=== PATIENT | female | born 2000 | race Two or more races ===

== ENCOUNTER 2024-03-09 15:36 | Observation (INO) | payer MEDICAID, SELFPAY ==
[2024-03-09] VITALS (87 sets, daily range): BP systolic 112–123; BP diastolic 69–90; PULSE 116–140; RESP 16–22; TEMP 37.5–39.1; O2SAT 91–100; BMI 33.8
--- NOTE | 2024-03-09 15:45 | XR_ITS ---
Examination: Complete OB ultrasound greater than 14 weeks Date and time of exam: March 09, 2024 1631 hrs. Indications: Lower back pelvic pain and fever onset today Findings: Viable intrauterine single fetus with single amniotic sac presentation cephalic spine maternal left Cardiac motion 167 BPM Placenta anterior grade 2 Umbilical cord insertion seen Cervix 4.5 cm Ovaries obscured by bowel gas. Composite estimated gestational age based on BPD, head circumference, abdominal circumference, femur length is 38 weeks 2 days Estimated weight 3551 g. Survey of intracranial anatomy, spinal anatomy, abdominal anatomy, four-chamber heart performed with no abnormalities identified. Impression: Viable intrauterine gestation cephalic presentation Estimated gestational age 38 weeks 2 days.
[2024-03-09] MEDS: ACETAMINOPHEN 325 MG TABLET 650 MG PO (16:04)
[2024-03-09 16:23] LABS: Collection Type, Urine Clean Catch; RBC,Urine 0 /hpf (0-3)
[2024-03-09 16:24] LABS: Lactate (Lactic Acid) 2.2 mMol/L (0.4-2.0)
[2024-03-09 16:26] LABS: Basophils % (Auto) 0 % (0-2.5); Eosinophils % (Auto) 0 % (0-10); Hematocrit 28.7 % (36.0-46.0); Hemoglobin 9.1 g/dL (12.0-16.0); Immature Granulocytes % (Auto) 1 % (0-0); Immature Granulocytes Auto 0.09 Thou/mm3 (0.00-0.00); Lymphocytes # (Auto) 0.3 Thou/mm3 (1.0-4.8); Lymphocytes % (Auto) 4 % (10-50); Mean Corpuscular HGB Conc 31.7 g/dl (31.0-37.0); Mean Corpuscular Hemoglobin 24.3 pg (25.0-35.0); Mean Corpuscular Volume 77 fL (80-100); Monocytes # (Auto) 0.6 Thou/mm3 (0.0-0.8); Monocytes % (Auto) 9 % (0-12); Neutrophils % (Auto) 85 % (37-80); Nucleated Red Blood Cell # 0.08 Thou/mm3 (0.00-0.00); Nucleated Red Blood Cell % 1 /100 WBC (0); Platelet Count 169 Thou/mm3 (140-440); RDW Standard Deviation 45.6 fL (36.4-46.3); Red Blood Count 3.75 Miln/mm3 (4.00-5.20); White Blood Count 7.1 Thou/mm3 (3.6-11.0)
[2024-03-09 16:40] LABS: Bilirubin,Urine Negative (Negative); Blood,Urine Negative (Negative); Clarity,Urine Clear (Clear/Hazy); Color,Urine Lt-Yellow (Lt Yel-Yel); Glucose, Urine Negative (Negative); Ketones,Urine Trace (Negative); Leukocyte Esterase,Urine Negative (Negative); Nitrite,Urine Negative (Negative); Protein,Urine Negative (Neg - Trace); Specific Gravity,Urine 1.007 (1.001-1.035); Squamous Epithelial Cell,Urine 3 /hpf (0-5); Urobilinogen,Urine Negative mg/dL (0.0-1.0); WBC,Urine < 1 /hpf (0-5)
[2024-03-09] MEDS: SODIUM CHLORIDE 0.9% 1000 ML 1,000 ML 999 ML IV ×2 (16:45→20:41)
[2024-03-09 16:46] LABS: Influenza A Ag Negative; Influenza B Ag Negative
[2024-03-09 16:46] LABS: COVID-19 Antigen (In-House) Negative (Negative)
[2024-03-09] MEDS: ceFAZolin/D5W 2 GM IV 2 GM/100 ML BAG IV ×2 (16:47→22:38)
[2024-03-09 19:20] LABS: Reflex Lactate? Y
[2024-03-09 19:42] LABS: Lactic Acid, 3 HR 1.1 mMol/L (0.4-2.0)
[2024-03-09] MEDS: ACETAMINOPHEN IVPB 1,000 MG/100 ML VIAL 250 MG IV (20:50)
[2024-03-09] MEDS: SODIUM CHLORIDE 0.9% 1000 ML 1,000 ML 125 ML IV (22:41)
[2024-03-10] VITALS (116 sets, daily range): BP systolic 115–131; BP diastolic 67–85; PULSE 95–215; RESP 18–22; TEMP 36.8–38.1; O2SAT 93–100
[2024-03-10] MEDS: ACETAMINOPHEN 325 MG TABLET PO ×2 (02:24→04:48)
--- NOTE | 2024-03-10 05:33 | PD.LDANTE ---
Documentation for date of: 03/10/24 OB Labor/Induct. HPI History of Present Illness : 1 History of present illness: 23 at 36 weeks and 4 days, TING 04/02/2024 presented to labor and delivery triage with complaints of high fevers, respiratory symptoms as well as palpitations for 1 day duration. Patient denies any obstetric complaints. Specifically she reports no contractions or leakage of fluid and reports good movements. Patient does endorse that she was at family function where there was a gathering and there are other members who are also sick with similar symptoms. History of Present Adequate Care: Yes Review of Systems Review of Systems Systems Reviewed: All systems reviewed, normal except as documented Meds Home Medications and Allergies Home Medications ?Medication ?Instructions ?Recorded ?Confirmed ?Type [id number]-[id number]-FA 1 mg 1 tab PO DAILY 01/22/24 01/22/24 History tablet Allergies Allergy/AdvReac Type Severity Reaction Status Date / Time No Known Allergies Allergy Unverified 01/23/24 08:31 OB Exam Physical Exam Vital signs: Temp Pulse Resp BP Pulse Ox O2 Del Method 100.6 F H 126 H 18 115/67 100 Room Air 03/10/24 04:48 03/10/24 04:35 03/10/24 04:35 03/10/24 04:35 03/10/24 04:35 03/10/24 04:35 Constitutional Constitutional: no acute distress Routine HEENT Exam Head: Present normocephalic and atraumatic Eye: Present EOMI and PERRL ENT: Present mucous membranes moist Routine Neck Exam Neck: Present supple and trachea midline Routine Cardiovascular Exam Cardiovascular: Present RRR Routine Abdominal Exam Abdominal: Present soft and normoactive bowel sounds Routine Extremities Exam Extremities: Present full ROM Routine Skin Exam Skin: Present intact, dry and warm Routine Neurological Exam Neurological: Present alert, oriented X3 and CN II-XII intact Routine Psychiatric Exam Psychiatric: Present normal affect and normal thought process OB Results Labs 03/09/24 16:11 Labs: Short CBC 03/09/24 Range/Units 16:11 WBC 7.1 (3.6-11.0) Thou/mm3 Hgb 9.1 L (12.0-16.0) g/dL Hct 28.7 L (36.0-46.0) % Plt Count 169 (140-440) Thou/mm3 Urine 12/01/24 Range/Units 16:05 Urine Color Lt-Yellow (Lt Yel-Yel) Urine Clarity Clear (Clear/Hazy) Urine pH 7.0 (5.0-7.0) Ur Specific [place] 1.007 (1.001-1.035) Urine Protein Negative (Neg - Trace) Urine Glucose (UA) Negative (Negative) OB Assessment & Plan Assessment and Plan (1) Fever of unknown origin: Status: Acute Assessment and plan: 23-year-old G1, P0 at 36 weeks and 5 days with fever of unknown origin Place in observation status Start antibiotics for empiric coverage for UTI Intermittent monitoring Reassess in the morning and discharge as necessary
[2024-03-10] MEDS: ceFAZolin/D5W 2 GM IV 2 GM/100 ML BAG IV (05:51)
[2024-03-10] MEDS: SODIUM CHLORIDE 0.9% 1000 ML 1,000 ML 250 ML IV (08:14)
[2024-03-10] MEDS: ACETAMINOPHEN IVPB 1,000 MG/100 ML VIAL 250 MG IV ×3 (10:00→21:53)
[2024-03-10] MEDS: PIPER/TAZO INJ 3.375 GM in SODIUM CHLORIDE 0.9% 100 ML IV ×3 (10:48→23:57)
[2024-03-10 11:27] LABS: COVID-19 Antigen (In-House) Negative (Negative)
[2024-03-11 04:00] VITALS: TEMP 37.7
[2024-03-11] MEDS: SODIUM CHLORIDE 0.9% 1000 ML 1,000 ML 250 ML IV (05:22)
[2024-03-11 05:32] VITALS: BP 124/80; PULSE 93; TEMP 38.1
[2024-03-11] MEDS: ACETAMINOPHEN IVPB 1,000 MG/100 ML VIAL 250 MG IV (06:10)
[2024-03-11 06:28] VITALS: TEMP 37.7
[2024-03-11 07:55] LABS: Lactate (Lactic Acid) 0.8 mMol/L (0.4-2.0)
[2024-03-11 07:58] LABS: Basophils % (Auto) 0 % (0-2.5); Eosinophils % (Auto) 0 % (0-10); Hematocrit 25.6 % (36.0-46.0); Immature Granulocytes % (Auto) 1 % (0-0); Immature Granulocytes Auto 0.07 Thou/mm3 (0.00-0.00); Lymphocytes # (Auto) 0.8 Thou/mm3 (1.0-4.8); Lymphocytes % (Auto) 14 % (10-50); Mean Corpuscular HGB Conc 30.5 g/dl (31.0-37.0); Mean Corpuscular Hemoglobin 23.6 pg (25.0-35.0); Mean Corpuscular Volume 77 fL (80-100); Monocytes # (Auto) 0.4 Thou/mm3 (0.0-0.8); Monocytes % (Auto) 8 % (0-12); Neutrophils # (Auto) 4.1 Thou/mm3 (1.8-7.7); Neutrophils % (Auto) 76 % (37-80); Nucleated Red Blood Cell # 0.04 Thou/mm3 (0.00-0.00); Nucleated Red Blood Cell % 1 /100 WBC (0); Platelet Count 173 Thou/mm3 (140-440); RDW Standard Deviation 47.1 fL (36.4-46.3); Red Blood Count 3.31 Miln/mm3 (4.00-5.20); White Blood Count 5.3 Thou/mm3 (3.6-11.0)
[2024-03-11 08:07] VITALS: BP 129/85; PULSE 95; RESP 18; TEMP 37.1; O2SAT 100
[2024-03-11 08:10] LABS: Hemoglobin 7.8 g/dL (12.0-16.0)
[2024-03-11 08:25] LABS: Alanine Aminotransferase 14 U/L (10-49); Albumin, Serum 3.3 gm/dL (3.5-5.0); Albumin/Globulin Ratio 1.7 (1.2-2.2); Alkaline Phosphatase 219 U/L (46-116); Anion Gap 11 (7-16); Aspartate Amino Transferase 27 U/L (0-34); BUN/Creatinine Ratio 13 Ratio (12-20); Bilirubin,Total 0.9 mg/dL (0.3-1.2); Blood Urea Nitrogen < 5 mg/dL (9-23); Calcium (Corrected) 8.6 mg/dL (8.5-10.1); Carbon Dioxide 16.3 mMol/L (20.0-31.0); Chloride 110 mMol/L (98-107); Creatinine (Component) 0.4 mg/dL (0.6-1.3); Estimated Creatinine Clearance 211.2 mL/min (>60); Glucose 81 mg/dL (74-106); Osmolality,Calculated 270 (275-295); Potassium 3.1 mMol/L (3.4-5.1); Sodium 137 mMol/L (136-145); Total Protein 5.3 gm/dL (5.7-8.2); eGFR > 60 See Note
--- NOTE | 2024-03-11 08:40 | PD.LDPN ---
Documentation for date of: 03/11/24 OB Labor Progress Note Status status: Category l Assessment and Plan Comments: Patient admitted 2 days ago due to fever of unknown origin. Sepsis protocol was within normal limits including blood and urine cultures, white blood cell count, lactic acid that was initially elevated but then was within normal limits the following day of admission. Her vital signs have been stable for over 24 hours except for 1 episode of fever that she had this morning. Yesterday she was started on Zosyn. The plan was to keep her today due to fever earlier this morning however the patient is electing leave, she declined continuing antibiotics and chest x-ray. She is currently afebrile with vital signs stable. However, my recommendation is for her to stay on antibiotics until she is 24 hours afebrile due to risk of sepsis, maternal / . Patient states understanding however she would like to leave AGAINST MEDICAL ADVICE. Patient signed informed with nurse at bedside as witness and her partner as well. Recommendations to return to L&D given
--- NOTE | 2024-03-11 09:00 | PC.NURSE ---
at bedside, patient recommended to stay in hospital to continue care due to risk of sepsis, and maternal . Patient verbalizes understanding and would like to proceed to leave AMA. NST reactive, vitals wnl and IV discontinued. Patient accompanied with significant other leaving at 0838. Patient educated on precautions and reasons to return to hospital. Patient instructed to follow up with provider at next scheduled appt.
== END 2024-03-11 08:38 | disposition left against medical advice (07) ==
PROVIDERS: Obstetrics & Gynecology; Admitting Provider Obstetrics & Gynecology; Visit Provider Obstetrics & Gynecology
DX: O26.893 Other specified pregnancy related conditions, third trimester (principal); R50.9 Fever, unspecified; Z3A.38 38 weeks gestation of pregnancy
CPT/HCPCS: 36415; 59025; 59899; 76805; 80053; 81001; 83605; 85025; 87040; 87086; 87502; 87811; 96361; 96365; 96366; J0131; J0689; J2543; J7030; J7050; A9270; J0690

== ENCOUNTER 2024-03-18 14:24 | Outpatient (CLI) | payer MEDICAID, SELFPAY ==
[2024-03-18] VITALS (16 sets, daily range): BP systolic 121–139; BP diastolic 69–90; PULSE 71–91; RESP 16; TEMP 36.7; O2SAT 98; BMI 33.5
--- NOTE | 2024-03-18 15:02 | XR_ITS ---
Examination: Complete OB ultrasound greater than 14 weeks Date and time of exam: March 18, 2024 1507 hours INDICATIONS: NST, labor evaluation, diagnosis macrosomia Findings: Viable intrauterine single fetus with single amniotic sac presentation cephalic spine maternal left Cardiac motion 137 BPM Placenta anterior grade 3 Umbilical cord insertion 3 vessel seen Amniotic fluid index 9.2 cm Cervix 2.6 cm Ovaries obscured by bowel gas. Composite estimated gestational age based on BPD, head circumference, abdominal circumference, femur length is 38 weeks 4 days Estimated weight 3511 g. Survey of intracranial anatomy, spinal anatomy, abdominal anatomy, four-chamber heart performed with no abnormalities identified. Impression: Viable intrauterine gestation cephalic presentation Estimated gestational age 38 weeks 4 days.
[2024-03-18 17:20] LABS: Collection Type, Urine Clean Catch
[2024-03-18 17:30] LABS: Basophils % (Auto) 0 % (0-2.5); Eosinophils # (Auto) 0.1 Thou/mm3 (0.0-0.5); Eosinophils % (Auto) 1 % (0-10); Hematocrit 28.5 % (36.0-46.0); Immature Granulocytes % (Auto) 1 % (0-0); Immature Granulocytes Auto 0.07 Thou/mm3 (0.00-0.00); Lymphocytes # (Auto) 1.3 Thou/mm3 (1.0-4.8); Lymphocytes % (Auto) 17 % (10-50); Mean Corpuscular HGB Conc 31.6 g/dl (31.0-37.0); Mean Corpuscular Hemoglobin 23.7 pg (25.0-35.0); Mean Corpuscular Volume 75 fL (80-100); Monocytes # (Auto) 0.7 Thou/mm3 (0.0-0.8); Monocytes % (Auto) 10 % (0-12); Neutrophils # (Auto) 5.5 Thou/mm3 (1.8-7.7); Neutrophils % (Auto) 72 % (37-80); Nucleated Red Blood Cell # 0.12 Thou/mm3 (0.00-0.00); Nucleated Red Blood Cell % 2 /100 WBC (0); Platelet Count 253 Thou/mm3 (140-440); RDW Standard Deviation 45.2 fL (36.4-46.3); Red Blood Count 3.79 Miln/mm3 (4.00-5.20); White Blood Count 7.7 Thou/mm3 (3.6-11.0)
[2024-03-18 17:44] LABS: Partial Thromboplastin Time 26.8 Seconds (22.0-36.0); Prothrombin Time 10.5 Seconds (9.0-12.2)
[2024-03-18 17:55] LABS: Alanine Aminotransferase 14 U/L (10-49); Albumin, Serum 3.6 gm/dL (3.5-5.0); Albumin/Globulin Ratio 1.6 (1.2-2.2); Alkaline Phosphatase 234 U/L (46-116); Anion Gap 10 (7-16); Aspartate Amino Transferase 10 U/L (0-34); BUN/Creatinine Ratio 10 Ratio (12-20); Bilirubin,Total 0.6 mg/dL (0.3-1.2); Blood Urea Nitrogen 5 mg/dL (9-23); Calcium 8.7 mg/dL (8.3-10.6); Carbon Dioxide 20.2 mMol/L (20.0-31.0); Chloride 109 mMol/L (98-107); Creatinine (Component) 0.5 mg/dL (0.6-1.3); Globulin 2.2 gm/dL (2.3-3.5); Glucose 96 mg/dL (74-106); LDH (Lactate Dehydrogenase) 240 U/L (120-246); Osmolality,Calculated 274 (275-295); Potassium 3.1 mMol/L (3.4-5.1); Sodium 139 mMol/L (136-145); Total Protein 5.8 gm/dL (5.7-8.2); Uric Acid 4.8 mg/dL (3.1-7.8); eGFR > 60 See Note
[2024-03-18 18:05] LABS: Bilirubin,Urine Negative (Negative); Blood,Urine Negative (Negative); Clarity,Urine Turbid (Clear/Hazy); Color,Urine Yellow (Lt Yel-Yel); Glucose, Urine Negative (Negative); Hyaline Casts,Urine < 1 /hpf (0-1); Ketones,Urine Negative (Negative); Leukocyte Esterase,Urine Negative (Negative); Nitrite,Urine Negative (Negative); Protein,Urine 1+ (Neg - Trace); RBC,Urine 2 /hpf (0-3); Specific Gravity,Urine 1.014 (1.001-1.035); Squamous Epithelial Cell,Urine 9 /hpf (0-5); Urobilinogen,Urine Negative mg/dL (0.0-1.0); WBC,Urine 2 /hpf (0-5)
[2024-03-18 18:40] LABS: Fibrinogen 704 mg/dL (175-375)
== END 2024-03-18 18:35 | disposition home or self-care (01) ==
LOC: S4S1 14:25 → S4SX 14:25
PROVIDERS: Referring Provider Advanced Practice Midwife; Visit Provider Advanced Practice Midwife
DX: Z34.03 Encounter for supervision of normal first pregnancy, third trimester (principal); Z36.9 Encounter for antenatal screening, unspecified; Z3A.38 38 weeks gestation of pregnancy
CPT/HCPCS: 36415; 76805; 80053; 81001; 83615; 84550; 85025; 85384; 85610; 85730

== ENCOUNTER 2024-03-25 11:18 | Observation (INO) | payer MEDICAID, SELFPAY ==
--- NOTE | 2024-03-25 11:26 | XR_ITS ---
Examination: Complete OB ultrasound greater than 14 weeks Date and time of exam: March 25, 2024 1411 hours INDICATIONS: Schedule for induction March 30, 2024, unknown size and dates Findings: Viable intrauterine single fetus with single amniotic sac presentation cephalic spine maternal right Cardiac motion 136 BPM Placenta anterior grade 3 Umbilical cord insertion 3 vessel seen Amniotic fluid index 10.2 cm Ovaries obscured by bowel gas. Composite estimated gestational age based on BPD, head circumference, abdominal circumference, femur length is 39 weeks 2 days Estimated weight 3890 g. Survey of intracranial anatomy, spinal anatomy, abdominal anatomy, four-chamber heart performed with no abnormalities identified. Impression: Viable intrauterine gestation cephalic presentation Estimated gestational age 39 weeks 2 days Estimated weight 3890 g.
[2024-03-25 11:37] VITALS: BMI 32.6
[2024-03-25 11:42] VITALS: BP 113/77; PULSE 85
[2024-03-25 12:00] VITALS: BP 121/72; PULSE 82
[2024-03-25 12:27] LABS: Collection Type, Urine Clean Catch
[2024-03-25 12:34] LABS: Basophils % (Auto) 0 % (0-2.5); Eosinophils # (Auto) 0.1 Thou/mm3 (0.0-0.5); Eosinophils % (Auto) 1 % (0-10); Hematocrit 32.3 % (36.0-46.0); Hemoglobin 9.8 g/dL (12.0-16.0); Immature Granulocytes % (Auto) 1 % (0-0); Immature Granulocytes Auto 0.05 Thou/mm3 (0.00-0.00); Lymphocytes # (Auto) 1.6 Thou/mm3 (1.0-4.8); Lymphocytes % (Auto) 21 % (10-50); Mean Corpuscular HGB Conc 30.3 g/dl (31.0-37.0); Mean Corpuscular Hemoglobin 22.7 pg (25.0-35.0); Mean Corpuscular Volume 75 fL (80-100); Monocytes # (Auto) 0.6 Thou/mm3 (0.0-0.8); Monocytes % (Auto) 8 % (0-12); Neutrophils # (Auto) 5.5 Thou/mm3 (1.8-7.7); Neutrophils % (Auto) 69 % (37-80); Nucleated Red Blood Cell # 0.05 Thou/mm3 (0.00-0.00); Nucleated Red Blood Cell % 1 /100 WBC (0); Platelet Count 292 Thou/mm3 (140-440); RDW Standard Deviation 45.1 fL (36.4-46.3); Red Blood Count 4.31 Miln/mm3 (4.00-5.20); White Blood Count 7.9 Thou/mm3 (3.6-11.0)
[2024-03-25 12:40] LABS: Bacteria,Urine Rare; Bilirubin,Urine Negative (Negative); Blood,Urine Negative (Negative); Clarity,Urine Clear (Clear/Hazy); Color,Urine Lt-Yellow (Lt Yel-Yel); Glucose, Urine Negative (Negative); Ketones,Urine Negative (Negative); Leukocyte Esterase,Urine Negative (Negative); Nitrite,Urine Negative (Negative); Protein,Urine Trace (Neg - Trace); RBC,Urine < 1 /hpf (0-3); Specific Gravity,Urine 1.006 (1.001-1.035); Squamous Epithelial Cell,Urine 2 /hpf (0-5); Urobilinogen,Urine Negative mg/dL (0.0-1.0); WBC,Urine 1 /hpf (0-5)
[2024-03-25 12:47] LABS: Partial Thromboplastin Time 26.8 Seconds (22.0-36.0); Prothrombin Time 10.5 Seconds (9.0-12.2)
[2024-03-25 12:55] LABS: Alanine Aminotransferase 8 U/L (10-49); Albumin/Globulin Ratio 1.6 (1.2-2.2); Alkaline Phosphatase 266 U/L (46-116); Anion Gap 11 (7-16); Aspartate Amino Transferase 10 U/L (0-34); BUN/Creatinine Ratio 13 Ratio (12-20); Blood Urea Nitrogen < 5 mg/dL (9-23); Carbon Dioxide 20.1 mMol/L (20.0-31.0); Chloride 106 mMol/L (98-107); Creatinine (Component) 0.4 mg/dL (0.6-1.3); Estimated Creatinine Clearance 207.4 mL/min (>60); Globulin 2.5 gm/dL (2.3-3.5); Glucose 112 mg/dL (74-106); LDH (Lactate Dehydrogenase) 225 U/L (120-246); Osmolality,Calculated 272 (275-295); Potassium 3.2 mMol/L (3.4-5.1); Sodium 137 mMol/L (136-145); Total Protein 6.5 gm/dL (5.7-8.2); Uric Acid 3.6 mg/dL (3.1-7.8); eGFR > 60 See Note
[2024-03-25 13:00] LABS: Fibrinogen 792 mg/dL (175-375)
== END 2024-03-25 13:50 | disposition home or self-care (01) ==
PROVIDERS: Admitting Provider Advanced Practice Midwife; Visit Provider Obstetrics & Gynecology
DX: Z34.03 Encounter for supervision of normal first pregnancy, third trimester (principal); Z3A.39 39 weeks gestation of pregnancy
CPT/HCPCS: 36415; 59025; 59899; 76805; 80053; 81001; 83615; 84550; 85025; 85384; 85610; 85730

== ENCOUNTER 2024-03-29 03:12 | Inpatient (IN) | payer MEDICAID, SELFPAY ==
--- NOTE | 2024-01-24 16:38 | PD.RESPRO ---
Documentation for date of: 01/24/24 Subjective Subjective Interval history: Patient is seen and examined at bedside. Patient reported improvement of her still consistently from watery to soft. Had 6 bowel movement since last night however she has good appetite and denied any nausea or vomiting at this time. Patient denied any fever or chills and denied any chest pain or palpitation. She reported that her movement as baseline and denied any headache or blurry vision. Vitally the patient heart rate was 98, blood pressure of 93/54. Patient was noticed to have potassium level of 3.4 and magnesium level of 1.4 which were repleted. Stool WBC came back positive, stool culture still pending. The patient reported that her sister yesterday developed similar symptoms such as diarrhea and fever which led us to believe that she most likely had a viral gastroenteritis. IV antibiotics were DC'd by the primary team for that reason. Patient is stable from medical standpoint at this time and will sign out from the case. Exam Narrative Exam GEN: AOx3, able to speak full sentences HEENT: NC/AC, PERRLA, oral mucosa moist, neck supple CVS: RRR, S1-S2 present, no murmurs appreciated RESP: CTAB GI: Gravid abdomen, soft,non distended, non tender, NBS MSK: able to move all 4 limbs, no lower extremity edema SKIN: warm and dry BRUSH MATERIAL PREPARER: CN II-XII and Sensation grossly intact. Quality Measures Quality Measures VTE prophylaxis Assessment & Plan Assessment Current Active Medications: Generic Name Dose Route Start Last Admin Trade Name Freq PRN Reason Stop Dose Admin Piperacillin/Tazobactam/Dextrose 3.375 gm in 50 mls @ 12.5 mls/hr 01/22/24 22:30 01/23/24 07:56 Zosyn IV 01/29/24 22:29 12.5 mls/hr Q8HR ELROY Administration Acetaminophen 1,000 mg in 100 mls @ 250 mls/hr 01/22/24 18:25 01/23/24 04:58 Ofirmev Inj IV 01/23/24 12:23 250 mls/hr Q6HR ELROY Administration Lactated Ringer's 1,000 mls @ 175 mls/hr 01/22/24 21:00 01/23/24 00:45 Lactated Ringers IV 01/23/24 20:59 175 mls/hr .Q5H43M ELROY Administration Potassium Chloride 10 meq in 100 mls @ 100 mls/hr 01/23/24 08:46 Kcl Ivpb IV 01/23/24 10:45 Q1H ELROY Plan Summary: The patient is a 23-year-old female 1 para 0 at 29 weeks and 6 days of who presented with diarrhea, fevers, and not feeling well for 3 to 4 days. She also reported nausea but no vomiting. Internal medicine team was consulted for management of sepsis possibly secondary to gastroenteritis #Sepsis likely secondary to gastroenteritis #Lactic acidosis The patient presented with 4-day history of nausea, fevers and diarrhea and a general feeling of unwellness. She does report that she had a baby shower about a week ago, however no other persons present has had similar illnesses or complaints. On admission, lactic acid was 2.8, repeat lab was significantly elevated, possible lab error She was started on IV Zosyn and IV fluids as well as Tylenol as needed for fever. Lactic acid today initially 0.8 now 2.3. Considering differentials including viral versus bacterial gastroenteritis Low suspicion for C. difficile as the patient did not have any hospital visits before or any antibiotics use. Patient also reported that her sister developed similar symptoms such as fever and diarrhea which make us believe that the patient has simple gastroenteritis. Antibiotics were DC'd by the primary team Plan ? Patient is cleared from medical standpoint and will sign out from the case. #Hypokalemia Potassium level on admission-2.5 Potassium level today, 3.2 improved since yesterday. Replete today. # 1 para 0/29-week and 6 days Plan ? Follow primary team recommendations - Patient's plan and care discussed with my attending, Dr. Pavan Randall MD Internal Medicine PGY-2 Attending Provider Attestation/Addendum I have discussed and was present for the essential components of the history, physical examination, diagnosis, and treatment plan with the resident. I agree with the patient's care as documented by the resident and amended herein by me. Guevara Browne DO. Patient seen and evaluated this AM. Patient much improved today, states she is feeling better, stools are more formed. Patient denied any other sick contacts however endorsed stated that her sister actually developed similar symptoms to hers after the constitution party they were both at 1 week ago with a casper,. Considering the patient's initial labs, initial antibiotics were appropriate however can be discontinued at this time as I suspect viral gastroenteritis. We will continue to follow with cultures however will sign off at this time, we appreciate the opportunity to participate in the care and management of this patient. Although this document has been carefully reviewed, there may still be some phonetic and other typographical errors. These errors are purely grammatical due to imperfections in the software program and should not be construed in any way to compromise the substance of the patient's medical care during this visit.
[2024-03-29] VITALS (88 sets, daily range): BP systolic 108–155; BP diastolic 66–104; PULSE 70–108; RESP 16–20; TEMP 36.9–37.2; O2SAT 96–100; BMI 32.1
--- NOTE | 2024-03-29 03:59 | XR_ITS ---
Examination: Complete OB ultrasound greater than 14 weeks Date and time of exam: March 29, 2024 0413 hrs. Indications: Pelvic cramping beginning 3 days ago Findings: Viable intrauterine single fetus with single amniotic sac presentation cephalic spine maternal left Cardiac motion 136 BPM Placenta anterior grade 2 Umbilical cord insertion seen Amniotic fluid index 6 cm Cervix 3.8 cm Ovaries obscured by bowel gas. Composite estimated gestational age based on BPD, head circumference, abdominal circumference, femur length is 38 weeks 6 days Estimated weight 4230.7 g. Survey of intracranial anatomy, spinal anatomy, abdominal anatomy, four-chamber heart performed with no abnormalities identified. Impression: Viable intrauterine gestation cephalic presentation.
[2024-03-29 04:41] LABS: Collection Type, Urine Clean Catch
--- NOTE | 2024-03-29 04:48 | ESHP_ITS ---
Documentation for date of: 03/29/24 OB Labor/Induct. HPI History of Present Illness Chief complaint: 24 y/o 39w 3d presents to L&D for IOL due to macrosomia : 1 Para: 0 Term pregnancies: 0 pregnancies: 0 Living children: 0 History of Abortions: Spontaneous and Elective: 0 History of Vaginal deliveries: 0 History of sections: No History of : No TING: 04/02/24 Gestational Age (weeks): 39 Gestational Age (days): 3 History of present illness: 24 y/o 39w 3d presents to L&D for IOL due to macrosomia. Anum France CNM scheduled pt's IOL due to macrosomia fetus. GBS was done last visit, no results, GBS is unknown. Pt is 1/thick/high with irregular contractions. EFW 4200g History of Present Dating criteria: based on 1st trimester US only Adequate Care: Yes Ultrasounds: normal 1st trimester US, normal mid trimester US and abnormal US findings (Growth at 98%ile macrosomia) Obstetrical complications: other (Macrosomia) Labs Maternal Blood Type: O Pos Labs: Negative: RPR, Hepatitis B, Rubella Titre, HIV, Chlamydia and Gonorrhea and Unknown: Herpes Type 1, Herpes Type 2, Group Beta Strep and Covid- 19 Review of Systems Review of Systems Systems Reviewed: All systems reviewed, normal except as documented Past Medical History Surgical History SURGICAL: Negative Section Meds Home Medications and Allergies Home Medications ?Medication ?Instructions ?Recorded ?Confirmed ?Type yybfpeop-irz-Fg-FA 1 mg 1 tab PO DAILY 01/22/24 03/29/24 History tablet Allergies Allergy/AdvReac Type Severity Reaction Status Date / Time No Known Allergies Allergy Verified 03/29/24 04:57 OB Exam Physical Exam Vital signs: Temp Pulse Resp BP 98.9 F 91 20 135/93 H 03/29/24 04:00 03/29/24 04:33 03/29/24 04:00 03/29/24 04:33 Constitutional Constitutional: no acute distress Routine HEENT Exam Head: Present normocephalic and atraumatic Eye: Present EOMI, PERRL and normal accommodation ENT: Present mucous membranes moist Routine Neck Exam Neck: Present full ROM Routine Respiratory Exam Respiratory: Absent respiratory distress Routine Cardiovascular Exam Cardiovascular: Present RRR Routine Abdominal Exam Abdominal: Present soft and normoactive bowel sounds Comments: Gravid Uterus EFW 4200g Routine Exam External: Present normal urethra appearance; Absent lesions Detailed Labor and Delivery Exam Dilation (cm): 1 Effacement (%): 0 Cervix position: posterior station: -3 Consistency: medium Presentation: Vertex Membranes: intact Baseline heart rate: 130 monitor accelerations: 15x15 monitor decelerations: None half-way variability: Moderate (11-25) Contraction frequency (min): Irregular Routine Extremities Exam Extremities: Present full ROM Routine Back/Spine/Pelvis Exam Back/Spine: Present full ROM Routine Skin Exam Skin: Present intact, dry and warm Routine Neurological Exam Neurological: Present alert, oriented X3 and CN II-XII intact Routine Psychiatric Exam Psychiatric: Present normal affect and normal thought process OB Results Labs 03/29/24 04:23 03/29/24 04:23 OB Assessment & Plan Assessment and Plan (1) Encounter for induction of labor: Status: Acute (2) Macrosomia of fetus affecting management of mother in [place] in third trimester: Status: Acute (3) with 39 completed weeks gestation: Status: Acute Additional Plan Induction method: other (Cervidil) Plan: induction, anticipate NVD, GBS prophylaxis tx and consult prn Additional Plan Comment: Routine admit orders Consult anesthesia for an epidural Ok to eat early in the induction process Intermittent monitoring ok early on
[2024-03-29 04:50] LABS: Amphetamine/Metham Scrn,Ur OB Negative (Negative); Benzoylecgonine Screen, Ur OB Negative (Negative); Opiate Screen,Urine OB Negative (Negative); THC Screen,Urine OB Negative (Negative)
[2024-03-29 05:14] LABS: Basophils % (Auto) 1 % (0-2.5); Eosinophils # (Auto) 0.1 Thou/mm3 (0.0-0.5); Eosinophils % (Auto) 1 % (0-10); Hematocrit 31.8 % (36.0-46.0); Immature Granulocytes % (Auto) 1 % (0-0); Immature Granulocytes Auto 0.05 Thou/mm3 (0.00-0.00); Lymphocytes # (Auto) 1.5 Thou/mm3 (1.0-4.8); Lymphocytes % (Auto) 19 % (10-50); Mean Corpuscular HGB Conc 31.4 g/dl (31.0-37.0); Mean Corpuscular Hemoglobin 22.7 pg (25.0-35.0); Mean Corpuscular Volume 72 fL (80-100); Monocytes # (Auto) 0.8 Thou/mm3 (0.0-0.8); Monocytes % (Auto) 9 % (0-12); Neutrophils # (Auto) 5.6 Thou/mm3 (1.8-7.7); Neutrophils % (Auto) 70 % (37-80); Nucleated Red Blood Cell # 0.02 Thou/mm3 (0.00-0.00); Nucleated Red Blood Cell % 0 /100 WBC (0); Platelet Count 232 Thou/mm3 (140-440)
[2024-03-29 05:16] LABS: Bilirubin,Urine Negative (Negative); Blood,Urine Negative (Negative); Clarity,Urine Clear (Clear/Hazy); Color,Urine Yellow (Lt Yel-Yel); Glucose, Urine Negative (Negative); Ketones,Urine Negative (Negative); Leukocyte Esterase,Urine Negative (Negative); Nitrite,Urine Negative (Negative); Protein,Urine 2+ (Neg - Trace); RBC,Urine 1 /hpf (0-3); Specific Gravity,Urine 1.017 (1.001-1.035); Squamous Epithelial Cell,Urine 1 /hpf (0-5); Urobilinogen,Urine Negative mg/dL (0.0-1.0); WBC,Urine 3 /hpf (0-5)
[2024-03-29 05:39] LABS: Alanine Aminotransferase < 7 U/L (10-49); Albumin/Globulin Ratio 1.5 (1.2-2.2); Alkaline Phosphatase 286 U/L (46-116); Anion Gap 11 (7-16); Aspartate Amino Transferase 11 U/L (0-34); BUN/Creatinine Ratio 12 Ratio (12-20); Blood Urea Nitrogen 6 mg/dL (9-23); Calcium 9.2 mg/dL (8.3-10.6); Calcium (Corrected) 9.2 mg/dL (8.5-10.1); Carbon Dioxide 19.5 mMol/L (20.0-31.0); Chloride 109 mMol/L (98-107); Creatinine (Component) 0.5 mg/dL (0.6-1.3); Estimated Creatinine Clearance 163.1 mL/min (>60); Globulin 2.7 gm/dL (2.3-3.5); Glucose 82 mg/dL (74-106); Osmolality,Calculated 274 (275-295); Potassium 3.7 mMol/L (3.4-5.1); Sodium 139 mMol/L (136-145); Total Protein 6.7 gm/dL (5.7-8.2); Uric Acid 3.5 mg/dL (3.1-7.8); eGFR > 60 See Note
[2024-03-29 05:46] LABS: Syphilis Nonreactive (Nonreactive)
--- NOTE | 2024-03-29 05:48 | PRELIM_ITS ---
Obstetric ultrasound with Doppler. March 29, 2024 at 0413 hoursClinical history: Presentation.Comp arison: No prior study is available for comparison.Findings:There is a gravid uterus with a live fetu s in cephalic with spine to the maternal left presentation of mean gestational age 38 weeks and 6 day s (by biometry). cardiac activity is present at a heart rate of 136 beats per minute. The placenta is anterior in location, maturity grade 2. There is no evidence of placenta previa or retro placental hemorrhage. Amniotic fluid is adequate (SIOBHAN = 6.0 cm). Estimated weight is 4231 grams +/- 6-6 grams. The cervix measures 3.8 cm, closed.No abnormalities detected by DopplerImpression:Gra vid uterus with a single live fetus in cephalic with spine to the maternal left presentation of mean gestational age 38 weeks 6 days. Report Electronically Signed By: Segundo Catalan 03/29/2024 5:47:47 AM [EST]
[2024-03-29 05:52] LABS: Partial Thromboplastin Time 27.4 Seconds (22.0-36.0); Prothrombin Time 10.5 Seconds (9.0-12.2)
[2024-03-29] MEDS: RINGERS LACTATED 1000 ML 1,000 ML 125 ML IV ×2 (05:52→14:31)
[2024-03-29 05:54] LABS: Fibrinogen 860 mg/dL (175-375)
[2024-03-29] MEDS: DINOPROSTONE 10 MG VAG.SUPP VAGINAL (06:41)
--- NOTE | 2024-03-29 08:38 | PD.LDPN ---
Documentation for date of: 03/29/24 OB Labor Progress Note Pain Control Comments: None Pelvic Exam Dilation (cm): 1 Effacement (%): 0 station: -3 Contractions Contraction frequency: Irregular Status status: Category l Assessment and Plan Comments: Induction of labor for Macrosomia by [facility] at 39 weeks Discussed ultrasound findings indicating estimated weight of 4231g. Discussed how the ultrasound can sometimes overestimate or underestimate weight of the baby by about 1 pound this late in . I discussed the risk of shoulder dystocia (about 1 out of 10 chance for birthweight >4000 g, this would be higher if the actual weight was underestimated by ultrasound). I explained that shoulder dystocia is a life-threatening condition that can result in a permanent neurologic injury and rarely . I explained this in layman's terms and indicated that the patient could also sustain a permanent genitourinary injury that could result in life long voiding or defecating problems including urinary or incontinence. I explained that in the absence of diabetes that ACOG guidelines indicate that it is reasonable to try a vaginal delivery with estimated weight less than 5000g. My clinical exam is that the estimated weight is 4000g. I discussed these issues in laymans terms with the patient and her partner and all questions answered. Sarah her RN was present in the room for the entire discussion.I informed her that she has the right in request a delivery at anytime. I explained that by choosing to perform a Delivery she would take all the risk off of her baby and place it on herself. Discussed the risks, complications of Delivery. Plan to continue Cervidil cervical ripening at this time as she desires to proceed with a trial of labor in anticipation of a vaginal delivery.
[2024-03-29] MEDS: MISOPROSTOL 50 mCg TABLET PO ×2 (19:27→23:53)
[2024-03-29] MEDS: LABETALOL 100 MG TABLET 200 MG PO (20:04)
[2024-03-30] VITALS (308 sets, daily range): BP systolic 108–161; BP diastolic 53–108; PULSE 68–128; RESP 16–18; TEMP 36.6–37.7; O2SAT 94–100
[2024-03-30] MEDS: RINGERS LACTATED 1000 ML 1,000 ML 125 ML IV ×2 (02:03→12:14)
[2024-03-30] MEDS: fentaNYL CIT INJ 50 mCg/ML AMP 2ML 100 MCG IV ×2 (04:00→08:35)
[2024-03-30] MEDS: MISOPROSTOL 50 mCg TABLET PO ×2 (04:08→08:27)
[2024-03-30] MEDS: LABETALOL 100 MG TABLET 200 MG PO (08:28)
--- NOTE | 2024-03-30 08:42 | PD.LDPN ---
Documentation for date of: 03/30/24 OB Labor Progress Note Pain Control Comments: Fentanyl Pelvic Exam Dilation (cm): 3 Effacement (%): 60 station: -3 Amniotic membrane status: Intact Contractions Contraction frequency: Irregular Status status: Category l Assessment and Plan Comments: S/P cervidil x1 S/P cytotec x 3 Cervical Ripening Ongoing Pitocin when Bishops 8
[2024-03-30] MEDS: OXYTOCIN in NS 30 units 30 UNIT/500 ML BAG IV (13:27)
--- NOTE | 2024-03-30 14:25 | PD.LDPN ---
Documentation for date of: 03/30/24 OB Labor Progress Note Pain Control Comments: Epidural Pelvic Exam Dilation (cm): 4 Effacement (%): 80 station: -2 Amniotic membrane status: Ruptured Comments: clear amniotic fluid no caput or molding. Contractions Monitor mode: Internal Contraction frequency: Irregular Contraction intensity: Mild Intrauterine tone measurement: 20 Status status: Category l Assessment and Plan Comments: IUPC placed to monitor Pitocin augmentation
[2024-03-30] MEDS: DiphenhydrAMINE INJ 50 MG/ML VIAL (18:50)
[2024-03-30] MEDS: DiphenhydrAMINE INJ 50 MG/ML VIAL 25 MG IV (18:53)
--- NOTE | 2024-03-30 20:00 | PD.LDPN ---
Documentation for date of: 03/30/24 OB Labor Progress Note Pain Control Comments: Epidural Pelvic Exam Dilation (cm): 5 Effacement (%): 80 station: -2 Amniotic membrane status: Ruptured Comments: Caput and molding with severely edematous cervix. Contractions Monitor mode: Internal Contraction frequency: q3m Contraction intensity: Strong Status status: Category ll Comments: tachycardia 180's MVU's > 200 Assessment and Plan Comments: Maternal fever 100.4 Chorioamnionitis Persistent Tachycardia Arrest of Dilatation Delivery Informed consent obtained. The patient was made aware of the risks, complications, alternatives and benefits of the proposed procedure and she agreed.
[2024-03-30] MEDS: METOCLOPRAMIDE INJ 5 MG/ML VIAL 2 ML 10 MG IVP (20:09)
[2024-03-30] MEDS: FAMOTIDINE INJ 10 MG/ML VIAL 2 ML 20 MG IV (20:11)
[2024-03-30] MEDS: ceFAZolin/D5W 2 GM IV 2 GM/100 ML BAG IV (20:15)
--- NOTE | 2024-03-30 21:17 | ESDS_ITS ---
DS: Providers Provider Date of admission: 03/29/24 03:12 Primary care physician: Physician No Primary/Family Admitting Provider: Anum France CNM Attending Provider on Admission: Emery Pham MD Attending Provider on DC: Vic Hall MD Discharging Provider: Vic Hall MD DS: Diagnosis Discharge Diagnosis (1) Encounter for induction of labor: Status: Acute (2) Macrosomia of fetus affecting management of mother in [place] in third trimester: Status: Acute (3) with 39 completed weeks gestation: Status: Acute (4) Chorioamnionitis, delivered, current hospitalization: Status: Acute (5) delivery delivered: Status: Acute (6) Uterine atony: Status: Acute (7) hemorrhage: Status: Acute (8) Endometriosis: Status: Acute Problem List Completed Was Problem List Reviewed/Reconciled?: Yes Summary/Hosp Course Brief History: 24 y/o 39w 3d presents to L&D for IOL due to macrosomia. Anum France CNM scheduled pt's IOL due to macrosomia fetus. GBS was done last visit, no results, GBS is unknown. Pt is 1/thick/high with irregular contractions. EFW 4200g Peripartum Data Delivery Method: Low Transverse [place] 1: Gender: Female Time Spent with Patient Time attestation: Total time spent providing and/or coordinating discharge services: Exam Vital Signs Temp Pulse Resp BP Pulse Ox O2 Del Method 99.6 F 82 18 118/80 98 Room Air 03/30/24 19:49 03/30/24 15:00 03/30/24 19:49 03/30/24 15:00 03/30/24 20:15 03/29/24 07:25 Discharge Plan Prescriptions/Referrals Prescriptions/Med Rec: No Action 1 mg Tablet 1 tab PO DAILY Referrals: No Primary/Family,Physician [Primary Care Provider] - Patient/Caregiver Discharge Instructions Print Language: Czech Planned Discharge Date 04/01/24
[2024-03-30] MEDS: OXYTOCIN in NS 20 units 20 UNIT/1,000 ML BAG 125 UNIT IV (21:45)
[2024-03-30] MEDS: AMPICILLIN/SULBAC INJ 3 GM in SODIUM CHLORIDE 0.9% (P) 100 ML IV (22:24)
[2024-03-30] MEDS: LABETALOL INJ 5 MG/ML VIAL 20 ML 10 MG IVP (22:54)
--- NOTE | 2024-03-30 23:08 | PD.LDDELS ---
Data ([facility]) Data Hx Section: No : 1 Para: 0 Term: 0 : 0 : 0 Delivery Data (Morales) Labor Data Stimulated/Augmented: Yes Induction: Yes Method: Oxytocin ROM Date: 03/30/24 ROM Time: 14:03 Rupture Type: AROM Amniotic Fluid: Clear Delivery Data EDC: 04/03/24 EDC calculated by:: LMP/early US confirmation Labor Onset Stage 1 Date: 03/30/24 Labor Onset Stage 1 Time: 12:00 Labor Onset Stage 2 Date: 03/30/24 Labor Onset Stage 2 Time: 20:36 Delivery Date: 03/30/24 Delivery Time: 20:43 Gestational age (weeks): 39 Gestational age (days): 3 Placenta Delivery Date: 03/30/24 Placenta Delivery Time: :43 Delivered by: Vic Hall Delivery nurse: Fabi Weaver Other staff at delivery: Rohit Other staff at delivery: 2nd Nurse Other staff at delivery: Fabi Weaver Other staff at delivery: Lucretia Sue Delivery Method Delivery: Delivery Type: Primary Presentation: Vertex Position: OP Anesthesia Type Primary Anesthesia: Epidural Placenta Placenta Delivery: Manual Placenta Cultures Obtained: No Placenta Sent for Examination: Yes Cord Sample: Cord Blood Obtained, Cord Gases Arterial and Cord Gases Venous EBL Estimated blood loss (ml): 1,000 Additional Procedures None Complications Complications: Uterine atony Hemorrhage Data ([place]ales) [place] Data Infant Gender: Female Infant Weight Grams: 3810 1 Minute Total: 7 5 Minute Total: 8 10 Minute Total: 9
[2024-03-31] VITALS (20 sets, daily range): BP systolic 119–148; BP diastolic 74–99; PULSE 83–104; RESP 16–19; TEMP 36.8–38.4; O2SAT 96–100
--- NOTE | 2024-03-31 00:26 | XR_ITS ---
Examination: AP chest single view Technique: AP portable upright chest single view Exam date and time: March 31, 2024 12:38 AM Indications: Sepsis protocol fever today Findings: Normal heart size. Lungs are clear. No pneumonia identified Impression: No active disease
[2024-03-31] MEDS: ACETAMINOPHEN IVPB 1,000 MG/100 ML VIAL 250 MG IV ×4 (00:55→17:32)
[2024-03-31 01:15] LABS: Basophils % (Auto) 0 % (0-2.5); Eosinophils % (Auto) 0 % (0-10); Hematocrit 32.3 % (36.0-46.0); Hemoglobin 9.6 g/dL (12.0-16.0); Immature Granulocytes % (Auto) 1 % (0-0); Immature Granulocytes Auto 0.06 Thou/mm3 (0.00-0.00); Lymphocytes # (Auto) 0.8 Thou/mm3 (1.0-4.8); Lymphocytes % (Auto) 7 % (10-50); Mean Corpuscular HGB Conc 29.7 g/dl (31.0-37.0); Mean Corpuscular Hemoglobin 22.5 pg (25.0-35.0); Mean Corpuscular Volume 76 fL (80-100); Monocytes # (Auto) 0.7 Thou/mm3 (0.0-0.8); Monocytes % (Auto) 6 % (0-12); Neutrophils # (Auto) 10.7 Thou/mm3 (1.8-7.7); Neutrophils % (Auto) 87 % (37-80); Nucleated Red Blood Cell # 0.02 Thou/mm3 (0.00-0.00); Nucleated Red Blood Cell % 0 /100 WBC (0); Platelet Count 188 Thou/mm3 (140-440); RDW Standard Deviation 47.8 fL (36.4-46.3); Red Blood Count 4.27 Miln/mm3 (4.00-5.20); White Blood Count 12.3 Thou/mm3 (3.6-11.0)
[2024-03-31 01:29] LABS: Partial Thromboplastin Time 28.8 Seconds (22.0-36.0); Prothrombin Time 10.9 Seconds (9.0-12.2)
[2024-03-31 01:33] LABS: B-Type Natriuretic Peptide 299 pg/mL (0-100)
[2024-03-31 01:46] LABS: Collection Type, Urine Catheter; Squamous Epithelial Cell,Urine 0 /hpf (0-5)
[2024-03-31 01:47] LABS: Alanine Aminotransferase < 7 U/L (10-49); Albumin, Serum 3.3 gm/dL (3.5-5.0); Albumin/Globulin Ratio 1.7 (1.2-2.2); Alkaline Phosphatase 236 U/L (46-116); Anion Gap 12 (7-16); Aspartate Amino Transferase 14 U/L (0-34); BUN/Creatinine Ratio 10 Ratio (12-20); Bilirubin,Total 1.4 mg/dL (0.3-1.2); Blood Urea Nitrogen < 5 mg/dL (9-23); Calcium 8.9 mg/dL (8.3-10.6); Calcium (Corrected) 9.5 mg/dL (8.5-10.1); Carbon Dioxide 21.4 mMol/L (20.0-31.0); Chloride 110 mMol/L (98-107); Creatinine (Component) 0.5 mg/dL (0.6-1.3); Estimated Creatinine Clearance 163.1 mL/min (>60); Glucose 87 mg/dL (74-106); Osmolality,Calculated 281 (275-295); Potassium 3.6 mMol/L (3.4-5.1); Sodium 143 mMol/L (136-145); Total Protein 5.3 gm/dL (5.7-8.2); eGFR > 60 See Note
[2024-03-31 02:19] LABS: Bilirubin,Urine Negative (Negative); Blood,Urine 2+ (Negative); Clarity,Urine Clear (Clear/Hazy); Color,Urine Lt-Yellow (Lt Yel-Yel); Glucose, Urine Negative (Negative); Hyaline Casts,Urine < 1 /hpf (0-1); Ketones,Urine 1+ (Negative); Leukocyte Esterase,Urine Negative (Negative); Nitrite,Urine Negative (Negative); Protein,Urine 1+ (Neg - Trace); RBC,Urine 138 /hpf (0-3); Specific Gravity,Urine 1.014 (1.001-1.035); Urobilinogen,Urine Negative mg/dL (0.0-1.0); WBC,Urine 2 /hpf (0-5)
[2024-03-31 02:33] LABS: Troponin I < 0.020 ng/mL (0.0-0.045)
[2024-03-31 06:18] LABS: Basophils # (Auto) 0.1 Thou/mm3 (0.0-0.2); Basophils % (Auto) 0 % (0-2.5); Eosinophils % (Auto) 0 % (0-10); Hematocrit 28.9 % (36.0-46.0); Hemoglobin 8.8 g/dL (12.0-16.0); Immature Granulocytes % (Auto) 1 % (0-0); Immature Granulocytes Auto 0.06 Thou/mm3 (0.00-0.00); Lymphocytes # (Auto) 1.3 Thou/mm3 (1.0-4.8); Lymphocytes % (Auto) 10 % (10-50); Mean Corpuscular HGB Conc 30.4 g/dl (31.0-37.0); Mean Corpuscular Hemoglobin 22.7 pg (25.0-35.0); Mean Corpuscular Volume 75 fL (80-100); Monocytes % (Auto) 8 % (0-12); Neutrophils # (Auto) 10.5 Thou/mm3 (1.8-7.7); Neutrophils % (Auto) 81 % (37-80); Nucleated Red Blood Cell # 0.02 Thou/mm3 (0.00-0.00); Nucleated Red Blood Cell % 0 /100 WBC (0); Platelet Count 175 Thou/mm3 (140-440); Red Blood Count 3.87 Miln/mm3 (4.00-5.20); White Blood Count 12.9 Thou/mm3 (3.6-11.0)
[2024-03-31] MEDS: AMPICILLIN/SULBAC INJ 3 GM in SODIUM CHLORIDE 0.9% (P) 100 ML IV ×4 (06:19→23:24)
--- NOTE | 2024-03-31 07:41 | PD.LDPPPRG ---
Subjective Subjective Interval history: Delivery type: Patient doing well this morning. No acute complaints. Ambulating, tolerating p.o. and voiding without difficulty. HTN/Pre-Eclampsia screen: No chest pain, shortness of breath, headache, visual changes, epigastric or right upper quadrant pain. Breast-feeding, lochia diminishing. Bowel: Flatus+/ BM+ Exam Vital Signs Temp Pulse Resp BP Pulse Ox O2 Del Method 99.3 F 104 H 16 119/82 100 Room Air 03/31/24 06:23 03/31/24 00:25 03/31/24 06:23 03/31/24 06:23 03/31/24 06:23 03/31/24 00:25 Constitutional Constitutional: no acute distress Routine HEENT Exam Head: Present normocephalic and atraumatic Eye: Present EOMI and PERRL ENT: Present mucous membranes moist Routine Neck Exam Neck: Present supple and trachea midline Routine Respiratory Exam Respiratory: Present chest non-tender, lungs clear, normal breath sounds and no resp distress Routine Cardiovascular Exam Cardiovascular: Present RRR Routine Abdominal Exam Abdominal: Present soft and normoactive bowel sounds Routine Extremities Exam Extremities: Present full ROM Routine Skin Exam Skin: Present intact, dry and warm Routine Neurological Exam Neurological: Present alert, oriented X3 and CN II-XII intact Routine Psychiatric Exam Psychiatric: Present normal affect and normal thought process Objective Labs 03/31/24 04:55 03/31/24 00:52 Labs: Laboratory Results - last 24 hr 03/31/24 03/31/24 03/31/24 00:52 00:55 04:55 WBC 12.3 H D 12.9 H RBC 4.27 3.87 L Hgb 9.6 L 8.8 L Hct 32.3 L 28.9 L MCV 76 L 75 L MCH 22.5 L 22.7 L MCHC 29.7 L 30.4 L RDW Std Deviation 47.8 H 48.0 H Plt Count 188 D 175 Neut % (Auto) 87 H 81 H Lymph % (Auto) 7 L 10 Sullivan % (Auto) 6 8 Eos % (Auto) 0 0 Baso % (Auto) 0 0 Neut # (Auto) 10.7 H 10.5 H Lymph # (Auto) 0.8 L 1.3 Sullivan # (Auto) 0.7 1.0 H Eos # (Auto) 0.0 0.0 Baso # (Auto) 0.0 0.1 Immature Gran # (Auto) 0.06 H 0.06 H Absolute Nucleated RBC 0.02 H 0.02 H Immature Gran % 1 H 1 H Nucleated RBC % 0 0 PT 10.9 INR 1.0 APTT 28.8 Sodium 143 Potassium 3.6 Chloride 110 H Carbon Dioxide 21.4 Anion Gap 12 BUN < 5 L Creatinine 0.5 L Estim Creat Clear Calc 163.1 eGFR > 60 BUN/Creatinine Ratio 10 L Glucose 87 Calculated Osmolality 281 Lactic Acid 2.0 Calcium 8.9 Corrected Calcium 9.5 Total Bilirubin 1.4 H AST 14 ALT < 7 L Alkaline Phosphatase 236 H D Troponin I < 0.020 B-Natriuretic Peptide 299 H Total Protein 5.3 L Albumin 3.3 L D Globulin 2.0 L Albumin/Globulin Ratio 1.7 Ur Collection Type Catheter Urine Color Lt-Yellow Urine Clarity Clear Urine pH 7.0 Ur Specific [place] 1.014 Urine Protein 1+ A Urine Glucose (UA) Negative Urine Ketones 1+ A Urine Blood 2+ A Urine Nitrite Negative Urine Bilirubin Negative Urine Urobilinogen (Auto) Negative Ur Leukocyte Esterase Negative Urine RBC 138 H Urine WBC 2 Ur Squamous Epith Cells 0 Urine Bacteria None Hyaline Casts < 1 Assessment & Plan Problem List (1) Encounter for induction of labor: Status: Acute (2) Macrosomia of fetus affecting management of mother in [place] in third trimester: Status: Acute (3) with 39 completed weeks gestation: Status: Acute (4) Chorioamnionitis, delivered, current hospitalization: Status: Acute (5) delivery delivered: Status: Acute Assessment and plan: 1. Continue routine /post-op care 2. Labs reviewed, cbc appropriate 3. Remove dressing/Garcia 4. Encourage to ambulate, shower 5. Encourage PO intake, breast feeding (6) Uterine atony: Status: Acute (7) hemorrhage: Status: Acute (8) Endometriosis: Status: Acute Time Spent With Patient Time: Total time spent is greater than 50% in coordination of care (as documented) at patient's floor/unit and/or counseling patient:
[2024-03-31] MEDS: LABETALOL 100 MG TABLET 200 MG PO ×2 (08:10→20:28)
[2024-03-31] MEDS: SIMETHICONE 80 MG CHEW PO (08:29)
--- NOTE | 2024-03-31 09:07 | ESPR_ITS ---
RE: CARRINGTON SHINE : 2000 DATE OF SERVICE: 03/31/2024 S: Postoperative day #1, the patient denies any problem or complaints. She has got adequate urine output with Garcia catheter in place. She denies any nausea or vomiting. She tolerates regular diet. She is passing flatus. She denies any excessive vaginal bleeding. She denies any dizziness or lightheadedness. She denies any chest pain, palpitations, shortness of breath or lower extremity pain. She denies any cough, sore throat, stiff neck, flank pain, or diarrhea. O: Vital Signs: Blood pressure 119/82, heart rate 88, respirations 16, temperature is 99.3, T-max is 101.1, and pulse ox is 100% on room air. Lungs: Clear to auscultation bilaterally. Heart: Regular rate and rhythm. Abdomen: Fundus is firm. Dressing is dry and intact. Extremities: Nontender. LABORATORY DATA: Hemoglobin pre-delivery is 10.0 and post-delivery is 8.8. Blood culture and urine culture, pending. A: 1. Postoperative day #1 status post delivery. 2. Chorioamnionitis. 3. Possible endometritis. P: Continue Unasyn until discharge. Follow chest x-ray and cultures. Remove dressing. Discontinue Garcia catheter. Encourage ambulation. support. DT: 07:34:23 TT: 09:06:00 Ref: [id number] - TID: [id number]
--- NOTE | 2024-03-31 11:06 | PC.SS ---
TOBACCO HANGER conducted bedside contact with the patient to address nursing referral indicating patient history of THC use. TOBACCO HANGER introduced self, role and basis of referral. Present with patient was Larry YATES. Patient gave permission for FOB to be present during discussion. Patient confirmed past use of THC for recreational purposes. Toxicology report for patient was negative. Once confirmed patient ceased use. Patient stated that plan will be to discontinue use due to intention to breast feed infant. , Jayla; is the patient?s first child. delivered via . Patient is aligned with [place]. Patient is not receiving SNAP or TANF. Patient denies history of alcohol/drug abuse. Patient denies CWS intervention. Patient denies episodes of domestic violence. Patient denies possessing a history of mental health, reports no current possession of depression or anxiety. OB services provided by [facility]. Patient reports consistency with OB appointments. Patient has access to appropriate supplies and equipment; to include a car seat. FOB will provide transportation upon discharge. Patient describes possessing support system consisting of parent and FOB. TOBACCO HANGER provided the patient with community resources to include [facility] and information to apply for SNAP and TANF. No further intervention required at this time, social science teacher will be available to address any further concerns. TOBACCO HANGER updated bedside nurse.
--- NOTE | 2024-03-31 12:21 | ESOP_ITS ---
RE: CARRINGTON SHINE : 2000 DATE OF OPERATION: 03/30/2024 PREOPERATIVE DIAGNOSES: * Intrauterine at 39 weeks and 4 days. * Suspected macrosomia. * Induction of labor. * Chorioamnionitis. * Arrest of dilatation. POSTOPERATIVE DIAGNOSES: * Intrauterine at 39 weeks and 4 days. * Suspected macrosomia. * Induction of labor. * Chorioamnionitis. * Arrest of dilatation. * Uterine atony * Thick meconium-stained amniotic fluid * Endometriosis * Occiput posterior PROCEDURE PERFORMED: Primary low transverse section via Pfannenstiel skin incision SURGEON: Vic Hall DO TRAINING AND DEVELOPMENT DIRECTOR: AMINATA Hodges ANESTHESIA: Epidural with IV sedation. ANESTHESIOLOGIST: Napoleon Clements CRNA ESTIMATED BLOOD LOSS: 1000 mL. COMPLICATIONS: Uterine atony FINDINGS: A live female infant, cephalic presentation, thick meconium-stained amniotic fluid, , see RN note. Cord pH, see labs. PATHOLOGY: Placenta DESCRIPTION OF PROCEDURE: After proper informed consent was obtained and the patient was made aware of the risks, complications, alternatives and benefits of the proposed procedure, she was taken to the operating room where she underwent bolus of epidural anesthesia. In addition, IV sedation was used to achieve adequate anesthesia. The patient was prepped and draped in the usual sterile fashion in the supine position on the operating room table. A timeout was performed and a Pfannenstiel skin incision was made with the scalpel, carried through the underlying layer of fascia with the Bovie. The fascia was nicked through the midline. The incision extended bilaterally with the Bovie. The inferior aspect of the fascia incision was grasped with Miguel clamps and elevated. The underlying rectus muscle was dissected off with the Bovie. The rectus was also at the midline. The peritoneum identified between two Blackman clamps and entered sharply with the Metzenbaum scissors. The incision was extended superiorly and inferiorly with good visualization of the bladder. The bladder was significantly distended with retained urine. The head was adjusted and the bladder drained and the bladder blade was inserted and the vesicouterine peritoneum was incised transversely and the bladder flaps were created digitally. The bladder blades was reinserted and the lower uterine segment was incised in a transverse fashion with the scalpel. The incision was extended bilaterally digitally. The infants head delivered. The mouth and nose suctioned with a bulb suction. The shoulders were delivered atraumatically. The cord was clamped and cut and infant sent off the waiting pediatric staff. Cord blood and gases were sent. Placenta was then removed manually. The uterus exteriorized and cleared of all clots and debris. The uterus was significantly atonic despite Pitocin. Therefore, she was given Methergine, Hemabate and TXA. These measures served to firm the uterus nicely. The uterine incision was closed with #1-0 chromic catgut suture in a running locking fashion. The second layer of same suture was used to imbricate the first layer and obtain excellent hemostasis. The vesicouterine peritoneum was closed with #2-0 chromic catgut suture in a running fashion. The uterus was firm. The gutters were cleared of all clots and debris. The uterus was returned to the abdomen. The gutter was cleared of all clots and debris. The peritoneum was closed with the 0 chromic catgut suture in a running fashion. The muscle was closed with the 0 chromic catgut suture in a running fashion. The fascia was closed with #0 Vicryl beginning at each angle and ending in center in a running fashion. Subcutaneous tissue was irrigated with normal saline solution and found to be hemostatic, closed with 2-0 chromic catgut suture in a running fashion. The skin was closed with 4-0 Monocryl. A Dermabond Prineo dressing and a sterile pressure dressing was applied. The uterus was firm. I discussed with the patient the nature of her condition and intraoperative findings, expectation for recovery. All questions answered. DT: 21:17:02 TT: 23:53:00 Ref: [id number] - TID: [id number]
[2024-03-31] MEDS: IBUPROFEN TAB 400 MG TABLET 800 MG PO (22:56)
[2024-04-01 05:00] VITALS: BP 125/89; PULSE 88; RESP 19; TEMP 36.9; O2SAT 96
[2024-04-01] MEDS: AMPICILLIN/SULBAC INJ 3 GM in SODIUM CHLORIDE 0.9% (P) 100 ML IV (05:16)
[2024-04-01 08:00] VITALS: BP 120/80; PULSE 109; RESP 18; TEMP 36.7; O2SAT 97
--- NOTE | 2024-04-01 08:15 | PD.LDPPPRG ---
Subjective Subjective Interval history: Delivery type: complicated by chorioamnionitis patient is on Unasyn and afebrile Patient doing well this morning. No acute complaints. Ambulating, tolerating p.o. and voiding without difficulty. HTN/Pre-Eclampsia screen: No chest pain, shortness of breath, headache, visual changes, epigastric or right upper quadrant pain. Breast-feeding, lochia diminishing. Bowel: Flatus+/ BM+ Exam Vital Signs Temp Pulse Resp BP Pulse Ox O2 Del Method 98.5 F 88 19 125/89 H 96 Room Air 04/01/24 05:00 04/01/24 05:00 04/01/24 05:00 04/01/24 05:00 04/01/24 05:00 04/01/24 05:00 Constitutional Constitutional: no acute distress Routine HEENT Exam Head: Present normocephalic and atraumatic Eye: Present EOMI and PERRL ENT: Present mucous membranes moist Routine Neck Exam Neck: Present supple and trachea midline Routine Respiratory Exam Respiratory: Present chest non-tender, lungs clear, normal breath sounds and no resp distress Routine Cardiovascular Exam Cardiovascular: Present RRR Routine Abdominal Exam Abdominal: Present soft and normoactive bowel sounds Routine Extremities Exam Extremities: Present full ROM Routine Skin Exam Skin: Present intact, dry and warm Routine Neurological Exam Neurological: Present alert, oriented X3 and CN II-XII intact Routine Psychiatric Exam Psychiatric: Present normal affect and normal thought process Objective Labs 03/31/24 04:55 03/31/24 00:52 Assessment & Plan Problem List (1) Encounter for induction of labor: Status: Acute (2) Macrosomia of fetus affecting management of mother in [place] in third trimester: Status: Acute (3) with 39 completed weeks gestation: Status: Acute (4) Chorioamnionitis, delivered, current hospitalization: Status: Acute (5) delivery delivered: Status: Acute Assessment and plan: PPD/POD#2 1. Continue routine care 2. Transition to PO meds. 3. Encourage to ambulate/ breast-feed 4. Anticipate discharge home today late in the evening as she was a late night (6) Uterine atony: Status: Acute (7) hemorrhage: Status: Acute (8) Endometriosis: Status: Acute Time Spent With Patient Time: Total time spent is greater than 50% in coordination of care (as documented) at patient's floor/unit and/or counseling patient:
[2024-04-01 09:00] VITALS: BP 120/80; PULSE 109
[2024-04-01] MEDS: LABETALOL 100 MG TABLET 200 MG PO (09:00)
[2024-04-01] MEDS: IBUPROFEN TAB 400 MG TABLET 800 MG PO (14:36)
[2024-04-01 15:45] VITALS: BP 126/81; PULSE 95; RESP 18; TEMP 37; O2SAT 99
[2024-04-01] MEDS: Milk Of Magnesia Susp 30 ML UDC PO (16:39)
[2024-04-01] MEDS: SIMETHICONE 80 MG CHEW PO (16:39)
== END 2024-04-01 18:05 | disposition home or self-care (01) | DRG 540 ==
LOC: S4SX 03-30 17:09 → S4NX 03-30 20:37
PROVIDERS: Nurse Practitioner Women's Health; Specialist; Admitting Provider Advanced Practice Midwife; Visit Provider Obstetrics & Gynecology
PROC: 10D00Z1 Extraction of Products of Conception, Low, Open Approach (ICD-10-PCS; CPT 59514; principal; 2024-03-30 20:30)
DX: O36.63X0 Maternal care for excessive fetal growth, third trimester, not applicable or unspecified (principal); Z37.0 Single live birth; Z3A.39 39 weeks gestation of pregnancy; O34.83 Maternal care for other abnormalities of pelvic organs, third trimester; N80.9 Endometriosis, unspecified; O41.1230 Chorioamnionitis, third trimester, not applicable or unspecified; O72.1 Other immediate postpartum hemorrhage; O62.0 Primary inadequate contractions; O76 Abnormality in fetal heart rate and rhythm complicating labor and delivery; O77.0 Labor and delivery complicated by meconium in amniotic fluid
CPT/HCPCS: 36415; 59409; 71045; 76805; 80053; 80307; 81001; 83605; 83880; 84484; 84550; 85025; 85384; 85610; 85730; 86780; 86850; 86900; 86901; 87040; 87086; 93005; 94762; A4649; J0131; J0295; J0689; J1200; J2210; J2250; J2274; J2405; J2590; J2704; J2765; J2795; J3010; J3490; J7120; A9270; J0690; J1920; J2270